=== PATIENT | female | born 1985 | race Caucasian/White ===

== ENCOUNTER 2025-03-01 14:07 | Emergency (ER) | payer SELFPAY ==
[~2025-03-01] VITALS: Ht 152.4 cm; Wt 82.0 kg
[2025-03-01 14:11] VITALS: O2SAT 97
[2025-03-01] MEDS: ACETAMINOPHEN 500MG TABLET PO ONE (15:27)
[2025-03-01] MEDS ORDERED: AMOX500T2 MT (18:15)
[2025-03-01 18:33] VITALS: BP 107/71; PULSE 89; RESP 16; TEMP 37; O2SAT 100
== END 2025-03-01 19:36 | disposition home or self-care (01) ==
LOC: ER 14:07
DX: J02.0 Streptococcal pharyngitis (principal)
CPT/HCPCS: 87430; 99283